=== PATIENT | female | born 1985 | race Caucasian/White ===

== ENCOUNTER 2016-09-06 09:51 | Emergency (ER) | payer MEDICAID ==
--- NOTE | 2016-09-06 11:04 | ED Physician Documentation ---
PD HPI LOWER EXT INJURY - Stated complaint Stated Complaint: GLF/LEG PX - Chief complaint Chief Complaint: Ext Problem - History obtained from History obtained from: Patient - History of Present Illness PD HPI LOW EXT INJURY LOCATION: Left, Ankle Type of injury: Twist Where injury occurred: Home Timing - onset: Last night Timing - duration: Hours Timing - details: Abrupt onset, Still present Improved by: Rest, Immobilization Worsened by: Moving, Palpating Associated symptoms: Swelling. No: Weakness, Numbness Contributing factors: No: Anticoagulated Similar symptoms before: Has not had sx before Recently seen: Not recently seen - Additional information Additional information: 31 y/o Otherwise well female was going down some steps last night when she twisted her left ankle and has pain in the left ankle unable to bear weight and unable to move the foot without pain and she has pain in the midshaft of the fibula as well. Review of Systems Constitutional: denies: Fever, Chills, Myalgias Eyes: denies: Decreased vision Ears: denies: Ear pain Nose: denies: Congestion Throat: denies: Sore throat Respiratory: denies: Cough GI: denies: Nausea, Vomiting Musculoskeletal: reports: Extremity pain, Joint pain, Joint swelling, Pain with weight bearing. denies: Neck pain, Back pain PD PAST MEDICAL HISTORY - Present Medications Home Medications: Ambulatory Orders Medication Instructions Recorded Confirmed Amoxicillin 0 mg PO .FREQ 09/06/16 09/06/16 Loratadine [Claritin] 0 mg PO .FREQ 09/06/16 09/06/16 - Allergies Allergies/Adverse Reactions: Allergies Allergy/AdvReac Type Severity Reaction Status Date / Time No Known Drug Allergies Allergy Verified 09/06/16 10:01 PD ED PE NORMAL - Vitals Vital signs reviewed: Yes (normal ) - General General: Alert and oriented X 3, No acute distress, Well developed/nourished - HEENT HEENT: Atraumatic, PERRL - Neck Neck: Supple, no meningeal sign - Respiratory Respiratory: No respiratory distress - Derm Derm: Normal color, Warm and dry, No rash - Extremities Extremities: Other (there is swelling and tendernesss to the lateral malleolus and pain with flexion/extension of the ankle ) - Neuro Neuro: No motor deficit, No sensory deficit - Psych Psych: Normal mood, Normal affect Results - Vitals Vitals: Vital Signs - 24 hr 09/06/16 10:00 Temperature 36.7 C Heart Rate 78 Respiratory 17 Rate Blood Pressure 123/71 O2 Saturation 99 - Rads (name of study) Left ankle Radiology: Prelim report reviewed (Impression: Soft tissue swelling with small effusion.), EMP read indepedently, See rad report Left tib-fib Radiology: Prelim report reviewed (Impression: Normal tib-fib radiography.), EMP read indepedently, See rad report Procedures - Splint (location) Left ankle Splint applied by: Tech Type of splint: Ankle airsplint Other: Patient tolerated well, No complications, Neurovascular intact, Good alignment, Crutches provided PD MEDICAL DECISION MAKING - ED course Complexity details: reviewed results, re-evaluated patient, considered differential, d/w patient ED course: 31-year-old female with a left ankle sprain has significant swelling and pain with weightbearing she is placed into an air stirrup and we will provide her with some crutches. Departure - Departure Disposition: 01 Home, Self Care Clinical Impression: Ankle sprain Qualifiers: Encounter type: initial encounter Involved ligament of ankle: calcaneofibular ligament Laterality: left Qualified Code(s): S93.412A - Sprain of calcaneofibular ligament of left ankle, initial encounter Condition: Stable Instructions: ED Sprain Ankle W X Ray Follow-Up: Aniyah Joe MD [Primary Care Provider] - Forms: Activity restrictions
--- NOTE | 2016-09-06 11:52 | XRAY Preliminary Report ---
Exam: XR Ankle 3 View LT IMPRESSION: Soft tissue swelling with small effusion. [facility] SITE ID: [id number]
--- NOTE | 2016-09-06 11:54 | XRAY Preliminary Report ---
Exam: XR Tib/Fib LT IMPRESSION: Normal tibia/fibula radiography. [facility] SITE ID: [id number]
--- NOTE | 2016-09-06 11:55 | XRAY Report ---
EXAM: LEFT ANKLE RADIOGRAPHY EXAM DATE: 09/06/2016 11:45 AM. CLINICAL HISTORY: Twisted lateral pain . COMPARISON: None. TECHNIQUE: 3 views. FINDINGS: Bones: Normal. No fractures or bone lesions. Joints: Symmetrical mortise. Small joint effusion. Soft Tissues: Soft tissue swelling over lateral malleolus. IMPRESSION: Soft tissue swelling with small effusion. [facility] Referring Provider Line: [phone] SITE ID: [id number]
--- NOTE | 2016-09-06 11:56 | XRAY Report ---
EXAM: LEFT TIBIA/FIBULA RADIOGRAPHY EXAM DATE: 09/06/2016 11:46 AM. CLINICAL HISTORY: Ankle twist mid shaft fib pain . COMPARISON: None. TECHNIQUE: 2 views. FINDINGS: Bones: Normal. No fracture or bone lesion. Joints: The visualized knee and ankle joints are normal. No effusions. Soft Tissues: Unremarkable. IMPRESSION: Normal tibia/fibula radiography. [facility] Referring Provider Line: [phone] SITE ID: [id number]
[2016-09-06 12:55] VITALS: BP 121/75
== END 2016-09-06 13:04 | disposition home or self-care (01) ==
LOC: ED 09:51
DX: S93.412A Sprain of calcaneofibular ligament of left ankle, initial encounter (principal); X50.1XXA Overexertion from prolonged static or awkward postures, initial encounter
CPT/HCPCS: 99283

== ENCOUNTER 2022-06-20 08:00 | Outpatient (CLI) | payer OTHER ==
[2022-06-20 22:56] LABS: BACTERIAL VAGINOSIS DNA NEGATIVE (NEGATIVE); CANDIDA KRUSEI DNA NEGATIVE (NEGATIVE)
[2022-06-20 22:57] LABS: CANDIDA GLABRATA DNA NEGATIVE (NEGATIVE); CANDIDA GROUP DNA NEGATIVE (NEGATIVE); TRICHOMONAS VAGINALIS DNA NEGATIVE (NEGATIVE)
== END 2022-06-20 23:59 | disposition home or self-care (01) ==
LOC: LAB 08:00
PROVIDERS: ATTEND Physician Assistant Medical
DX: B37.9 Candidiasis, unspecified (principal)
CPT/HCPCS: 81514

== ENCOUNTER 2022-07-11 08:00 | Outpatient (CLI) | payer OTHER ==
[2022-07-11 23:17] LABS: BACTERIAL VAGINOSIS DNA NEGATIVE (NEGATIVE); CANDIDA KRUSEI DNA NEGATIVE (NEGATIVE); TRICHOMONAS VAGINALIS DNA NEGATIVE (NEGATIVE)
[2022-07-11 23:18] LABS: CANDIDA GLABRATA DNA NEGATIVE (NEGATIVE); CANDIDA GROUP DNA NEGATIVE (NEGATIVE)
[2022-07-12 01:24] LABS: CHLAMYDIA TRACHOMATIS DNA NEGATIVE (NEGATIVE); TRICHOMONAS VAGINALIS DNA NEGATIVE (NEGATIVE)
[2022-07-12 01:25] LABS: NEISSERIA GONORRHOEAE DNA NEGATIVE (NEGATIVE)
== END 2022-07-11 23:59 | disposition home or self-care (01) ==
LOC: LAB.N 08:00
PROVIDERS: ATTEND Registered Nurse
DX: R10.2 Pelvic and perineal pain (principal); R32 Unspecified urinary incontinence; R30.0 Dysuria
CPT/HCPCS: 81514; 87086; 87491; 87591; 87661